=== PATIENT | female | born 1955 | race African-American/Black ===

== ENCOUNTER 2024-05-21 14:17 | Emergency (ER) | payer MEDICARE, OTHER ==
[2024-05-21] MEDS ORDERED: Ketorolac Tromethamine 30 MG (1 mL) VIAL ONE (14:49)
== END 2024-05-21 15:00 | disposition home or self-care (01) ==
LOC: CSHERS 14:17
DX: M65.4 Radial styloid tenosynovitis [de Quervain] (principal); M65.941 Unspecified synovitis and tenosynovitis, right hand; I10 Essential (primary) hypertension
CPT/HCPCS: 96372; 99282; J1885